=== PATIENT | male | born 1945 | race Caucasian/White ===

== ENCOUNTER 2018-02-10 07:38 | Day surgery (SDC) | payer OTHER, BC ==
[2018-02-04 15:40] VITALS: BMI 30.9
[~2018-02-10 07:38] MED LIST: oxyCODONE HCL 10 MG SUSTAINED ACTING TABLET PO ONE
--- NOTE | 2018-02-10 08:21 | HP ---
History & Physical Update - History History: No Change - Physical Physical: No Change - Assessment Assessment: No Change - Plan Plan: No Change (full H&P in chart from 01/30/2018)
[2018-02-10] MEDS ORDERED: THROMBIN (BOVINE) 5,000 UNIT VIAL TP ONE ×2 (10:18→11:35)
[2018-02-10] MEDS ORDERED: methylPREDNISolone ACET (DEPO) 40 MG/1 ML VIAL ONE (10:18)
[2018-02-10] MEDS ORDERED: LIDOCAINE 1%/EPI 1:100000 (20 ML MULTI DOSE VIAL) ONE (10:18)
[2018-02-10] MEDS ORDERED: MIDAZOLAM HCL 2 MG/2 ML SINGLE DOSE VIAL ONE (10:30)
[2018-02-10] MEDS ORDERED: BUPIVACAINE HCL/PF (5 MG/ML) 30 ML VIAL IJ ONE (10:30)
[2018-02-10] MEDS ORDERED: LIDOCAINE 1%/EPI 1:100000 (50 ML MULTI DOSE VIAL) INF ONE (11:15)
[2018-02-10] MEDS ORDERED: GELATIN SPONGE,ABSORBABLE 1 GM PACKET TP ONE (11:36)
[2018-02-10] MEDS ORDERED: methylPREDNISolone ACET (DEPO) 40 MG/1 ML VIAL IM ONE (11:56)
[2018-02-10] MEDS ORDERED: oxyCODONE HCL 5 MG TABLET PO PRN ×2 (12:27)
[2018-02-10] MEDS ORDERED: ONDANSETRON 4 MG/2 ML VIAL IVPUSH PRN (12:27)
[2018-02-10] MEDS ORDERED: PROMETHAZINE HCL 25 MG/1 ML VIAL IVPUSH PRN (12:27)
--- NOTE | 2018-02-10 12:54 | OP ---
Operative Note - Note: Operative Date: 02/10/18 Pre-Operative Diagnosis: lumbar stenosis Operation: laminectomy of L3-L4 and L4-L5 Surgeon: Mele Burns Rn Advice: Kayla Mason Anesthesiologist/TELEVISION MAINTENANCE MAN: Chinedu Najera Anesthesia: Spinal Estimated Blood Loss (mls): 30 Fluid Volume Replaced (mls): 800 Operative Report Dictated: Yes
--- NOTE | 2018-02-10 12:55 | SURG ---
Surgery Metal Precision Machine Assembler Note Metal Precision Machine Assembler: Kayla Mason PA-C Date of Service: 02/10/18 Diagnosis: lumbar stenosis Procedure: laminectomy of L3-L4 and L4-L5 I was present for the entirety of the operative procedure. For further detail, please refer to operative report. Visit type - Case Type Case Type: Scheduled - Emergency Emergency Visit: No - New patient This patient is new to me today: Yes Date on this admission: 02/10/18
[2018-02-10 15:57] VITALS: BP 143/70; PULSE 70; TEMP 98
--- NOTE | 2018-02-10 20:41 | OP ---
DATE OF OPERATION: 02/10/2018 PREOPERATIVE DIAGNOSIS: Spinal stenosis, L3 to L5. POSTOPERATIVE DIAGNOSIS: Spinal stenosis, L3 to L5. PROCEDURE PERFORMED: Laminectomy, L3 to L5. SURGEON: Mele Burns MD EXECUTIVE CHAIRMAN OF THE BOARD: MARIAN Williamson ESTIMATED BLOOD LOSS: 50 mL INTRAVENOUS FLUIDS: Per Anesthesia. COMPLICATIONS: None. DISPOSITION: Patient brought to the PACU in stable condition. INDICATIONS FOR SURGERY: The patient is a 72-year-old gentleman who has been suffering from pain from his back down his legs. X-rays and MRI were completed which notes that he had spinal stenosis from L3 to L5. He had gone through an exhaustive course of treatment for this, which included medications, physical therapy as well as injections. Unfortunately, his pain continued to persist despite all this. At this point, risks, benefits, and alternatives were discussed, and the patient consented to surgery. DESCRIPTION OF PROCEDURE: Patient was brought to the operating room by the anesthesia staff. After appropriate patient identification was performed, spinal anesthesia was given, along with a TLIP block. Patient was able to position himself prone onto the OR table with all areas of bony prominences well padded at this time. Two needles were placed into his back to jonny off the L3 to L5 segment. X-ray was taken to confirm this as correct. [place] were removed, and 10 mL of lidocaine with epinephrine were injected into his back at this time. His back was prepped and draped in a sterile manner. At this point, a timeout was completed. An incision was made from the top of L3 down to the bottom of L5. Dissection was carried down to the fascia. Fascia was then split open at this time, and appropriate retractors were then placed in. A spinal needle was placed onto the L3 lamina to jonny off the L3-4 space. X-ray was taken to confirm this as correct. The needle was removed, and the interspinous ligament at L3-4 and L4-5 was removed. The spinous process of L4 was removed. The lamina of L4 was removed. The flavum was removed. By the end of the procedure, both the L4 and L5 nerve roots appeared to be well decompressed. All bleeding was well controlled at this time. Steroids were placed over the nerve root. FloSeal was placed over that. The fascia was closed with a No. 1 Vicryl suture. Subcutaneous tissues were closed with 2-0 Vicryl suture. Skin was closed with 3-0 Monocryl suture. Dermabond was applied. Steri-Strips were applied. A sterile dressing was applied. Patient was placed supine on the OR bed and brought to the PACU in stable condition. MELE BURNS M.D. PATY/[id number]
== END 2018-02-10 15:55 | disposition home or self-care (01) ==
LOC: FASU 07:38
PROVIDERS: ATTEND Orthopaedic Surgery Orthopaedic Surgery of the Spine
PROC: 01NB0ZZ Release Lumbar Nerve, Open Approach (ICD-10-PCS; principal; 2018-02-10 11:22)
DX: M48.061 Spinal stenosis, lumbar region without neurogenic claudication (principal)
CPT/HCPCS: 72100-TC-FY; 94760